=== PATIENT | female | born 1995 | race Caucasian/White ===

== ENCOUNTER → 2022-10-11 09:27 | Outpatient (CLI) | payer OTHER, SELFPAY ==
--- NOTE | ~2022-10-11 | XR_ITS ---
Lumbosacral Spine: AP, oblique, and lateral views Clinical History: Pain Findings: The normal lordotic curve is maintained. The vertebral bodies and posterior elements are i ntact. The intervertebral disc spaces are preserved. The sacroiliac joints are normally outlined. Impression: No significant abnormality. Reviewed, dictated and finalized at [facility]. [employer] Impression: No significant abnormality.
== END ==
PROVIDERS: PCP Family Medicine; Visit Provider Family Medicine
DX: M54.50 Low back pain, unspecified (principal)
CPT/HCPCS: 72110

== ENCOUNTER → 2022-11-29 14:01 | Outpatient (CLI) | payer OTHER, SELFPAY ==
--- NOTE | ~2022-11-29 | MR_ITS ---
EXAMINATION: MR lumbar spine wo con DATE: 11/29/2022 14:28 INDICATION: Low back pain. TECHNIQUE: Magnetic resonance imaging (MRI) of the lumbar spine was performed without intravenous con trast. Sequences included sagittal T2-weighted FSE, sagittal T2-weighted FS FSE, sagittal T1-weighted FSE, and axial T2-weighted FSE. COMPARISON: Lumbar spine radiographs 10/11/2022 FINDINGS: There is 4 degrees dextrocurvature of lumbar spine. Vertebral body heights are normal. Ther e is mildly decreased disc height at L4-L5 and L5-S1. The distal spinal cord signal intensity is norm al. The conus medullaris is at T12. The following disc levels are specifically discussed: L1-L2: The disc does not extend beyond the endplate margin. There is mild bilateral facet joint osteo arthritis. There is no neural foraminal stenosis. There is no central canal stenosis. L2-L3: The disc does not extend beyond the endplate margin. There is mild bilateral facet joint osteo arthritis. There is no neural foraminal stenosis. There is no central canal stenosis. L3-L4: The disc does not extend beyond the endplate margin. There is mild bilateral facet joint osteo arthritis. There is no neural foraminal stenosis. There is no central canal stenosis. L4-L5: The disc is bulging and has an annular fissure. There is mild bilateral facet joint osteoarthr itis. There is no neural foraminal stenosis. There is mild central canal stenosis. L5-S1: There is a right central extrusion. There is moderate bilateral facet joint osteoarthritis. Th ere is no neural foraminal stenosis. There is mild central canal stenosis. IMPRESSION: 1. Mild lumbar spondylosis. Reviewed, dictated and finalized at location A. IMPRESSION: 1. Mild lumbar spondylosis.
== END ==
PROVIDERS: PCP Family Medicine; Visit Provider Family Medicine
DX: M47.816 Spondylosis without myelopathy or radiculopathy, lumbar region (principal)
CPT/HCPCS: 72148

== ENCOUNTER 2023-05-22 20:38 | Emergency (ER) | payer OTHER, SELFPAY ==
--- NOTE | ~2023-05-22 | XR_ITS ---
EXAMINATION: XR chest 1V portable DATE: 05/22/2023 22:49 INDICATION: Chest pain. Shortness of breath. COVID-19 positive. TECHNIQUE: A single frontal view of the chest was obtained. COMPARISON: None. FINDINGS: There is no pneumonia, pleural effusion, or pneumothorax. The heart size is normal. IMPRESSION: 1. No acute cardiopulmonary disease. Reviewed, dictated and finalized at location E.
[2023-05-22 20:43] VITALS: BP 150/91; PULSE 115; RESP 18; TEMP 37.1; O2SAT 100
--- NOTE | 2023-05-22 20:46 | ECG_ITS ---
Measurements Intervals [place] Rate: 90 P: 67 MA: 169 QRS: 70 QRSD: 96 T: 64 QT: 356 QTc: 437 Interpretive Statements SINUS RHYTHM INCOMPLETE RIGHT BUNDLE BRANCH BLOCK [90+ ms QRS DURATION, TERMINAL R IN V1/V2, 40+ ms S IN I/aVL/V4/V5/V6] NO PREVIOUS ECG AVAILABLE FOR COMPARISON Electronically Signed On 05-23-2023 14:18:35 CDT by Max Malik M.D.
[2023-05-22 21:42] LABS: Influenza A QL RT-PCR Negative (Negative); Influenza B QL RT-PCR Negative (Negative); SARS-CoV-2 RNA PCR Positive (Negative)
[2023-05-22 22:21] VITALS: PULSE 90; RESP 14; TEMP 37.6; O2SAT 97
[2023-05-22 22:24] VITALS: PULSE 89
[2023-05-22 22:48] LABS: Basophils Percent Auto 0.5 % (0.2-1.2); Hematocrit 39.3 % (37.0-47.0); Hemoglobin 13.1 g/dL (12.0-15.0); Immature Granulocyte Absolute 0.02 K/mm3 (0.00-0.031); Immature Granulocyte Percent A 0.3 % (0-0.5); Lymphocytes Absolute Auto 0.77 K/mm3 (0.9-3.2); Lymphocytes Percent Auto 10.5 % (18.3-44.2); Mean Corpuscular HGB Conc 33.3 g/dl (32-36); Mean Corpuscular Hemoglobin 30.8 pg (26-34); Mean Corpuscular Volume 92.5 fl (80-100); Mean Platelet Volume 11.5 fl (7.4-10.4); Monocytes Absolute Auto 0.8 K/mm3 (0.1-0.6); Monocytes Percent Auto 10.9 % (2.6-8.5); Neutrophils Absolute Auto 5.7 K/mm3 (1.3-6.7); Neutrophils Percent Auto 77.8 % (45.5-73.1); Platelet Count Result 188 k/mm3 (150-375); Red Blood Count 4.25 M/mm3 (4.2-5.4); Red Cell Distribution Width 11.7 % (11.5-14.5); White Blood Count 7.3 K/mm3 (4.5-10.0)
[2023-05-22 23:11] LABS: Prothrombin Time 13.9 Seconds (11.1-14.7)
[2023-05-22 23:12] LABS: Partial Thromboplastin Time 32.5 SECONDS (22.3-36.8); Troponin I < 0.012 ng/mL (0.000-0.034)
[2023-05-22 23:28] LABS: Alanine Aminotransferase 20 U/L (6-35); Alkaline Phosphatase 61 U/L (38-126); Anion Gap 12 mmol/L (8-16); Aspartate Amino Transferase 30 U/L (14-36); Bilirubin,Total 0.7 mg/dL (0.2-1.3); Blood Urea Nitrogen 5 mg/dL (7-17); Calcium 9.1 mg/dL (8.4-10.2); Carbon Dioxide 24 mmol/L (22-30); Chloride 100 mmol/L (98-107); Estimated CRCL calculation 105 ml/min; Estimated Glomerular Filt Rate > 60; Glucose 90 mg/dL (65-110); Lipase 92 U/L (23-300); Potassium 3.4 mmol/L (3.4-5.0); Sodium 136 mmol/L (137-145)
--- NOTE | 2023-05-23 00:09 | ED.GENADULT ---
HPI - General Adult General Chief complaint: Unspecified Stated complaint: chest tightness-covid + Time Seen by Provider: 05/22/23 22:55 History of Present Illness HPI narrative: 27-year-old female present to the emergency department for evaluation of COVID symptoms. Patient did test positive for COVID this morning. Patient was complaining of nausea and vomiting Related Data Home Medications Medication Instructions Recorded Confirmed multivitamin 1 tablet PO DAILY 10/31/20 10/11/22 Allergies Allergy/AdvReac Type Severity Reaction Status Date / Time No Known Allergies Allergy Verified 05/22/23 20:39 Review of Systems Review of Systems: All systems reviewed & are unremarkable except as noted in HPI and below PMFSH Family History Family History Father Hypertension Heart disease Multiple sclerosis Mother Ovarian cancer Social History Social History Smoking status: Never smoker Alcohol intake: current Alcohol use details: beer/hard liquor every other weekend Substance use: never Substance use type: does not use Lack of Transportation: No Lack of Food: Never True Current Housing: I Have Housing Concerned About Future Housing: No Difficulty Paying Gas/Electric Bills: No Difficulty Paying for Meds: No Currently Unemployed: No Education: Bachelor's Degree Difficulty w/ Childcare or Family Care: No Living arrangements: with roommate(s) Occupation/Education: occupation Gender identity (if verbalized by the patient): Female Exam Narrative: APPEARANCE: Well appearing, no pain, no distress, well-nourished. HEAD: normocephalic, atraumatic. EYES: PERRLA/EOMI, conjunctivae clear. NOSE: Normal no drainage NECK: Supple. No adenopathy, no masses. RESPIRATORY: Airway patent, respirations nonlabored. Clear to auscultation bilaterally, no rales, rhonchi, wheezing. CARDIOVASCULAR: Regular rate and rhythm without murmurs rubs or gallops. ABDOMINAL: Soft, nontender, nondistended, normal bowel sounds MUSCULOSKELETAL: Moves all extremities. Strength/ROM intact, No edema, No calf tenderness. NEURO: Alert. Cranial nerves II through XII intact. Grossly intact SKIN: Warm, dry. Normal Color Course Course Emergency Course: 27-year-old female presented the ED for evaluation of shortness of breath, chest tightness and nausea and vomiting. Patient did test positive for COVID. Patient is afebrile and leukocytosis and a stable hemoglobin. Patient is not hypoxic. Patient did test positive for COVID. Patient was provided albuterol inhaler for symptom control. Patient was updated on the results of her work-up. All questions and concerns were addressed. Vital Signs Vital signs: Vital Signs Temperature 98.8 F 05/22/23 20:43 Pulse Rate 115 H 05/22/23 20:43 Respiratory Rate 18 05/22/23 20:43 Blood Pressure 150/91 H 05/22/23 20:43 Pulse Oximetry 100 05/22/23 20:43 Oxygen Delivery Room Air 05/22/23 20:43 Temperature 99.7 F H 05/22/23 22:21 Pulse Rate 99 05/23/23 00:42 Respiratory Rate 19 05/23/23 00:42 Blood Pressure 130/82 05/23/23 00:15 Pulse Oximetry 99 05/23/23 00:42 Oxygen Delivery Room Air 05/22/23 20:43 Medical Decision Making Vital Signs Vital Signs: Vital Signs Temperature 98.8 F 05/22/23 20:43 Pulse Rate 115 H 05/22/23 20:43 Respiratory Rate 18 05/22/23 20:43 Blood Pressure 150/91 H 05/22/23 20:43 Pulse Oximetry 100 05/22/23 20:43 Oxygen Delivery Room Air 05/22/23 20:43 Temperature 99.7 F H 05/22/23 22:21 Pulse Rate 99 05/23/23 00:42 Respiratory Rate 19 05/23/23 00:42 Blood Pressure 130/82 05/23/23 00:15 Pulse Oximetry 99 05/23/23 00:42 Oxygen Delivery Room Air 05/22/23 20:43 Lab Data Lab results reviewed: Yes I reviewed the patient's lab results. 05/22/23 22:38
[2023-05-23 00:15] VITALS: BP 130/82; PULSE 93; RESP 14; O2SAT 96
[2023-05-23] MEDS: ALBUTEROL SULFATE NEB 2.5 MG/3 ML INH INHALATION (00:25)
[2023-05-23 00:26] VITALS: PULSE 96; RESP 20
[2023-05-23 00:42] VITALS: PULSE 99; RESP 19; O2SAT 99
== END 2023-05-23 00:43 | disposition home or self-care (01) ==
PROVIDERS: Emergency Provider Emergency Medicine; PCP Family Medicine
DX: U07.1 COVID-19 (principal); I45.10 Unspecified right bundle-branch block
CPT/HCPCS: 36415; 71045; 80053; 81025; 83690; 84484; 85025; 85610; 85730; 87636; 93005; 94640; 99284

== ENCOUNTER 2024-03-10 09:37 | Emergency (ER) | payer BC, SELFPAY ==
--- NOTE | ~2024-03-10 | XR_ITS ---
XR chest 2V Ordering provider: Cathy Corey III, DO History: 28 years Female with . dizziness WEAKNESS . Comparison: May 22, 2023 FINDINGS: MEDIASTINUM: The cardiac silhouette is not enlarged. LUNGS: No infiltrates, effusions or pneumothorax. OTHER: No free air under the diaphragm. IMPRESSION: No acute cardiopulmonary pathology. Reviewed, dictated and finalized at location A.
[2024-03-10 09:39] VITALS: BP 138/97; PULSE 52; RESP 16; TEMP 36.4; O2SAT 100
--- NOTE | 2024-03-10 09:55 | ECG_ITS ---
Test Date: 2024-03-10 09:55:46 Measurements Intervals [place] Rate: 61 P: 62 [place]: 191 QRS: 53 QRSD: 97 T: 61 QT: 408 QTc: 411 Interpretive Statements SINUS RHYTHM WITH SINUS ARRHYTHMIA INCOMPLETE RIGHT BUNDLE BRANCH BLOCK BASELINE ARTIFACT- I, II, AVR, V1-V3 BORDERLINE ECG No previous ECG available for comparison Electronically Signed On 03-10-2024 12:27:47 CDT by Sy Sharpe D.O.
[2024-03-10 10:08] LABS: Basophils Percent Auto 0.7 % (0.2-1.2); Eosinophils Absolute Auto 0.1 K/mm3 (0-0.3); Eosinophils Percent Auto 1.1 % (0-4.4); Hematocrit 39.7 % (37.0-47.0); Hemoglobin 12.9 g/dL (12.0-15.0); Immature Granulocyte Absolute 0.01 K/mm3 (0.00-0.031); Immature Granulocyte Percent A 0.2 % (0-0.5); Lymphocytes Absolute Auto 2.38 K/mm3 (0.9-3.2); Lymphocytes Percent Auto 38.7 % (18.3-44.2); Mean Corpuscular HGB Conc 32.5 g/dl (32-36); Mean Corpuscular Hemoglobin 29.7 pg (26-34); Mean Corpuscular Volume 91.3 fl (80-100); Mean Platelet Volume 11.1 fl (7.4-10.4); Monocytes Absolute Auto 0.3 K/mm3 (0.1-0.6); Monocytes Percent Auto 5.2 % (2.6-8.5); Neutrophils Absolute Auto 3.3 K/mm3 (1.3-6.7); Neutrophils Percent Auto 54.1 % (45.5-73.1); Platelet Count Result 242 k/mm3 (150-375); Red Blood Count 4.35 M/mm3 (4.2-5.4); Red Cell Distribution Width 12.3 % (11.5-14.5); White Blood Count 6.2 K/mm3 (4.5-10.0)
[2024-03-10 10:21] LABS: Alanine Aminotransferase 13 U/L (6-35); Albumin Level 5.2 g/dL (3.5-5.1); Alkaline Phosphatase 57 U/L (38-126); Anion Gap 14 mmol/L (4-12); Aspartate Amino Transferase 26 U/L (14-36); Bilirubin,Total 0.4 mg/dL (0.2-1.3); Blood Urea Nitrogen 9 mg/dL (7-17); Calcium 9.3 mg/dL (8.4-10.2); Carbon Dioxide 24 mmol/L (22-30); Chloride 102 mmol/L (98-107); Estimated CRCL calculation 104 ml/min; Estimated Glomerular Filt Rate > 60; Glucose 89 mg/dL (65-110); Potassium 3.9 mmol/L (3.4-5.0); Sodium 140 mmol/L (137-145)
--- NOTE | 2024-03-10 10:36 | ED.DIZZY ---
HPI - Dizziness General Chief Complaint: Dizziness Stated Complaint: dizzy Time Seen by Provider: 03/10/24 10:05 Source: patient Mode of arrival: ambulatory Limitations: no limitations History of Present Illness HPI Narrative: This is a 28-year-old female that presents to the emergency department for lightheadedness. Reports it started last night when she was helping the outbound telemarketing representative with a procedure. She is a veterinary hospital shift lead. She has had intermittent episodes since. Does report just getting off of her menstrual cycle and it was a little bit heavier than usual. Reports feeling as if she could pass out. Denies focal numbness or weakness. Related Data Home Medications Medication Instructions Recorded Confirmed multivitamin 1 tablet PO DAILY 10/31/20 10/11/22 Allergies Allergy/AdvReac Type Severity Reaction Status Date / Time No Known Allergies Allergy Verified 03/10/24 09:42 Review of Systems Review of Systems: CONSTITUTIONAL: Denies fever CARDIOVASCULAR: Denies chest pain, or edema. GASTROINTESTINAL: Denies vomiting NEUROLOGIC: Denies numbness, or weakness. All systems reviewed & are unremarkable except as noted in HPI and below PMFSH Past Medical History Medical History (Updated 03/10/24 @ 13:13 by Izzy Guzman PA-C) Migraine Family History Family History Father Hypertension Heart disease Multiple sclerosis Mother Ovarian cancer Social History Social History Smoking status: Never smoker Alcohol intake: current Alcohol use details: beer/hard liquor every other weekend Substance use: never Substance use type: does not use Lack of Transportation: No Lack of Food: Never True Current Housing: I Have Housing Concerned About Future Housing: No Difficulty Paying Gas/Electric Bills: No Difficulty Paying for Meds: No Currently Unemployed: No Education: Bachelor's Degree Difficulty w/ Childcare or Family Care: No Living arrangements: with roommate(s) Occupation/Education: occupation Gender identity (if verbalized by the patient): Female Exam Narrative: GENERAL: Well-appearing, well-nourished, and in no acute distress. HEAD: Normocephalic, atraumatic. EYES: PERRLA and EOMI. ENT: Nares clear, no rhinorrhea or epistaxis. Mucous membranes moist. Oropharynx without tonsillar hypertrophy exudate or other lesions. Bilateral TMs pearly cassidy non-bulging NECK: Supple. No adenopathy or masses. No JVD CHEST: Clear to auscultation. No respiratory distress. No wheezes rales or rhonchi HEART: Regular rate and rhythm. No murmur heard. Normal peripheral pulses. EXTREMITIES: Normal range of motion. No edema. SKIN: Warm, dry, no rash. NEURO: No focal deficits. Alert and oriented x3. Cranial nerves 2-12 grossly intact PSYCH: Normal mood and affect Course Course Emergency Course: Patient updated on her workup and agrees with plan of care Vital Signs Vital signs: Vital Signs Temperature 97.6 F 03/10/24 09:39 Pulse Rate 52 L 03/10/24 09:39 Respiratory Rate 16 03/10/24 09:39 Blood Pressure 138/97 H 03/10/24 09:39 Pulse Oximetry 100 03/10/24 09:39 Oxygen Delivery Room Air 03/10/24 09:39 Temperature 97.6 F 03/10/24 09:39 Pulse Rate 52 L 03/10/24 09:39 Respiratory Rate 16 03/10/24 09:39 Blood Pressure 138/97 H 03/10/24 09:39 Pulse Oximetry 100 03/10/24 09:39 Oxygen Delivery Room Air 03/10/24 09:39 MDM - Dizziness MDM Narrative Medical decision making narrative: Patient presents to the ER for lightheadedness ongoing intermittently since last night. Her vitals are stable. She is neurologically intact. CBC without concerning findings. Metabolic panel with some mild dehydration. Patient given 2 L of fluids in the ED. Chest x-ray without concerning findings. EKG without concerning changes. test is negative. Re
[2024-03-10] MEDS: SODIUM CHLORIDE 0.9% IV 1,000 ML 999 ML IV CONT ×2 (10:39→11:38)
--- NOTE | 2024-03-10 10:41 | PC.NURSE ---
Patient ambulated out of department with steady gate with this RN at bedside
[2024-03-10 13:18] VITALS: BP 109/75; PULSE 56; RESP 16; TEMP 36.6; O2SAT 100
[2024-03-10 17:04] LABS: BEDSIDEPREGUCG Negative
== END 2024-03-10 13:20 | disposition home or self-care (01) ==
PROVIDERS: Emergency Medicine; Emergency Provider Physician Assistant; PCP Family Medicine
DX: R42 Dizziness and giddiness (principal); E86.0 Dehydration; I45.10 Unspecified right bundle-branch block
CPT/HCPCS: 36415; 71046; 80053; 81025; 85025; 93005; 96360; 96361; 99284; J7030

== ENCOUNTER 2024-08-01 23:59 | Emergency (ER) | payer BC, SELFPAY ==
--- NOTE | ~2024-08-01 | CT_ITS ---
Non-contrast Head CT History: Headache Technique: Axial non-contrast imaging of the brain was performed. Dose reduction technique was used on this scan by utilizing automated exposure control and iterative reconstruction technique. The dose -length product (DLP) was 681.00 mGy-cm. Findings: There is no evidence of intracranial hemorrhage, mass lesion, or acute infarct. Brain par enchyma appears normal. The ventricles and subarachnoid spaces are normal in size. The calvarium ap pears normal. The visualized paranasal sinuses and mastoid air cells are clear. Impression: No significant abnormality seen. Reviewed, dictated and finalized at location . [employer] Impression: No significant abnormality seen.
[2024-08-02 00:01] VITALS: BP 140/87; PULSE 68; RESP 16; TEMP 36.8; O2SAT 100
[2024-08-02] MEDS: SODIUM CHLORIDE 0.9% IV 1,000 ML 999 ML IV CONT (01:45)
[2024-08-02] MEDS: diphenhydrAMINE HCl INJ 50 MG/ML VIAL 25 MG IV PUSH (01:47)
[2024-08-02] MEDS: METOCLOPRAMIDE HCL INJ 10 MG/2 ML VIAL IV PUSH (01:47)
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
[2024-08-02] MEDS: dexAMETHasone SOD PHOS INJ 10 MG/ML 1 ML VIAL IV PUSH (02:17)
[2024-08-02] MEDS: MORPHINE SULFATE (*CRX) 4 MG/ML INJ IV PUSH (02:49)
== END 2024-08-02 03:41 | disposition home or self-care (01) ==
PROVIDERS: Emergency Provider Student in an Organized Health Care Education/Training Program
DX: S06.0X0A Concussion without loss of consciousness, initial encounter (principal); G43.909 Migraine, unspecified, not intractable, without status migrainosus; W22.8XXA Striking against or struck by other objects, initial encounter
CPT/HCPCS: 70450; 96361; 96374; 96375; 99284; J1100; J1200; J2270; J2765; J7030